=== PATIENT | female | born 1980 | race Asian ===

== ENCOUNTER 2016-06-06 05:25 | Inpatient (IN) | payer SELFPAY ==
[~2016-06-06] VITALS: Ht 164 cm; Wt 70.3 kg
[2016-06-06] MEDS ORDERED: OXYTOCIN 20 UNITS/LR PREMIX 1,000 ML IV SCH (06:15)
[2016-06-06] MEDS ORDERED: LACTATED RINGERS 1,000 ML IV SCH (06:15)
[2016-06-06] MEDS ORDERED: OXYTOCIN 10 UNITS/ML VIAL IM SCH (06:15)
[2016-06-06] MEDS ORDERED: LACTATED RINGERS 500 ML IV ONE (06:15)
[2016-06-06 06:23] LABS: BASOPHILS % (AUTO) 0.2 % (0.0-2.0); EOSINOPHILS # (AUTO) 0.1 K/uL (0-0.4); EOSINOPHILS % (AUTO) 1.1 % (0.0-4.0); HEMATOCRIT 34.3 % (36-48); HEMOGLOBIN 10.8 g/dL (12.0-16.0); LYMPHOCYTES # (AUTO) 1.7 K/uL (2.5-16.5); LYMPHOCYTES % (AUTO) 15.6 % (20.5-51.1); MEAN CORPUSCULAR HEMOGLOBIN 27 pg (27-31); MEAN CORPUSCULAR HGB CONC 32 g/dL (33-37); MEAN CORPUSCULAR VOLUME 86 fL (80-94); MONOCYTES # (AUTO) 0.6 K/uL (0.8-1.0); NEUTROPHILS # (AUTO) 8.7 K/uL (1.8-7.7); NEUTROPHILS % (AUTO) 78.1 % (42.2-75.2); PLATELET COUNT (AUTO) 155 K/uL (140-450); RED BLOOD CELL COUNT(AUTO) 3.98 MIL/uL (4.20-5.40); RED CELL DISTRIBUTION WIDTH 13.6 % (11.6-13.7); WHITE BLOOD COUNT (AUTO) 11.1 K/uL (4.8-10.8)
[2016-06-06 06:24] LABS: APPEARANCE,URINE CLOUDY (CLEAR); BILIRUBIN,URINE NEGATIVE (NEGATIVE); BLOOD, URINE 3+ (NEGATIVE); COLOR,URINE YELLOW (YELLOW); LEUKOCYTE ESTERASE ,URINE NEGATIVE (NEGATIVE); NITRITE, URINE NEGATIVE (NEGATIVE); PH,URINE 7.5 (5.0-9.0); PROTEIN,URINE NEGATIVE (NEGATIVE); UGLUCOSE NEGATIVE (NEGATIVE); UROBILINOGEN,URINE 0.2 EU/dL (0.2 - 1)
[2016-06-06 07:06] LABS: BACTERIA,URINE 1+ /HPF (None Seen); RBC,URINE 3-10 (FEW) /HPF (0-5); URINE AMORPHOUS PHOSPHATES 1+ /HPF (None Seen)
[2016-06-06 07:22] LABS: HIV RAPID SCREEN NON-REACTIVE (NON REACTIV)
[2016-06-06] MEDS ORDERED: ROPIVACAINE 0.2%/NS PREMIX 250 ML EPI ONE (07:49)
[2016-06-06 08:00] VITALS: BP 123/65
--- NOTE | 2016-06-06 08:28 | NUR ---
PATIENT HAS BEEN SCREENED AND CATEGORIZED LOW NUTRITION RISK. PATIENT WILL BE SEEN WITHIN 7 DAYS OF ADMISSION. 06/12/[address]
[2016-06-06] MEDS ORDERED: OXYTOCIN 10 UNITS/ML VIAL ONE (08:40)
[2016-06-06] MEDS ORDERED: OXYTOCIN 20 UNITS/LR PREMIX 1,000 ML IV ONE (08:40)
[2016-06-06 09:03] LABS: RAPID PLASMA REAGIN NON-REACTIVE (Non Reactiv)
[2016-06-06] MEDS ORDERED: AMPICILLIN 2,000 MG VIAL ONE (14:33)
[2016-06-06] MEDS ORDERED: AMPICILLIN 2,000 MG in NACL 0.9% 100 ML IV SCH (14:33)
[2016-06-06] MEDS ORDERED: WITCH HAZEL 40 PAD PACKAGE TP PRN (17:45)
[2016-06-06] MEDS ORDERED: TEMAZEPAM 15 MG CAP PO PRN (17:45)
[2016-06-06] MEDS ORDERED: MEASLES, MUMPS, AND RUBELLA 1 VIAL SQVAC PRN (17:45)
[2016-06-06] MEDS ORDERED: BENZOCAINE/MENTHOL 20%-0.5% 60 GM CAN TP PRN (17:45)
[2016-06-06] MEDS ORDERED: OXYTOCIN 10 UNITS/ML VIAL IM PRN (17:45)
[2016-06-06] MEDS ORDERED: ACETAMINOPHEN EXTRA STRENGTH 500 MG TAB PO PRN (17:45)
[2016-06-06] MEDS ORDERED: IBUPROFEN 800 MG TAB PO PRN (17:45)
[2016-06-06] MEDS ORDERED: HYDROcodone/APAP 5/325 MG 1 TAB TAB PO PRN (17:45)
[2016-06-06] MEDS ORDERED: METHYLERGONOVINE 0.2 MG/ML AMP IM PRN (17:45)
[2016-06-06] MEDS ORDERED: oxyCODONE/APAP 5/325 MG 1 TAB TAB PO PRN ×2 (17:45→21:45)
[2016-06-06] MEDS ORDERED: ACETAMINOPHEN 325 MG TAB ONE (18:07)
[2016-06-06] MEDS ORDERED: AMPICILLIN 1,000 MG in NACL 0.9% 50 ML IV SCH (20:00)
[2016-06-06] MEDS ORDERED: DOCUSATE SOD/SENNA 50/8.6 MG 1 TAB PO SCH (21:00)
[2016-06-07 06:03] LABS: HEMATOCRIT 26.3 % (36-48); HEMOGLOBIN 8.7 g/dL (12.0-16.0)
[2016-06-07] MEDS ORDERED: PHENYLEPHRINE 0.25% 1 EA SUPP RC PRN (08:35)
[2016-06-07] MEDS ORDERED: SHARK OIL/PHENYLEPHRINE 60 GM TUBE TP PRN (13:00)
== END 2016-06-08 17:15 | disposition home or self-care (01) | DRG 774 ==
LOC: MLD 05:25 → MFCC 20:45
PROVIDERS: ADMIT Obstetrics & Gynecology; ATTEND Obstetrics & Gynecology
PROC: 10D07Z6 Extraction of Products of Conception, Vacuum, Via Natural or Artificial Opening (ICD-10-PCS; principal; 2016-06-06)
PROC: 0KQM0ZZ Repair Perineum Muscle, Open Approach (ICD-10-PCS; 2016-06-06)
PROC: 10907ZC Drainage of Amniotic Fluid, Therapeutic from Products of Conception, Via Natural or Artificial Opening (ICD-10-PCS; 2016-06-06)
PROC: 00HU33Z Insertion of Infusion Device into Spinal Canal, Percutaneous Approach (ICD-10-PCS; 2016-06-06)
PROC: 3E0R3CZ (ICD-10-PCS; 2016-06-06)
PROC: 3E0234Z Introduction of Serum, Toxoid and Vaccine into Muscle, Percutaneous Approach (ICD-10-PCS; 2016-06-07)
DX: O69.81X0 Labor and delivery complicated by cord around neck, without compression, not applicable or unspecified (principal); O75.2 Pyrexia during labor, not elsewhere classified; O75.89 Other specified complications of labor and delivery; O63.1 Prolonged second stage (of labor); O70.1 Second degree perineal laceration during delivery; Z3A.38 38 weeks gestation of pregnancy; Z37.0 Single live birth; O09.523 Supervision of elderly multigravida, third trimester; Z23 Encounter for immunization
CPT/HCPCS: 36415; 51702; 81001; 85018; 85025; 86592; 86886; 86900; 86901; 87086; 90707; 90715; J0290; J2590; J2795; J7120